=== PATIENT | male | born 1950 | race Caucasian/White ===

== ENCOUNTER 2016-10-14 15:57 | Inpatient (IN) | payer MEDICARE ==
[2016-10-14] MEDS ORDERED: SODIUM CHLORIDE 0.9% 1,000 ML IV STA ×2 (18:51)
[2016-10-14] MEDS ORDERED: SODIUM CHLORIDE 0.9% 1,000 ML IV ONE (18:51)
--- NOTE | 2016-10-14 18:53 | ED ---
General Adult HPI - General Chief complaint: Skin/Abscess/Foreign Body Stated complaint: RT SECOND TOE INFECTION Time Seen by Provider: 10/14/16 18:15 Source: patient, family, RN notes reviewed, old records reviewed Mode of arrival: ambulatory Limitations: no limitations - History of Present Illness Initial comments: This is a 65-year-old male the ER for evaluation of infection. Patient has right great toe infection. Patient's history of diabetes multiple external reinfections fever infections and cellulitis events. Patient coming in the ER for evaluation, patient has been on outpatient antibiotics with no improvement. Patient denies any fevers, no nausea vomiting or diarrhea, no other significant complaints. - Related Data Home Medications Medication Instructions Recorded Confirmed Acitretin [Soriatane] 25 mg PO QAM 01/11/14 07/03/15 Aspirin 325 mg PO DAILY 01/11/14 07/03/15 Pantoprazole Sodium [Protonix] 40 mg PO DAILY 01/11/14 07/03/15 Warfarin [Coumadin] 2.5 mg PO ORTEGA 01/11/14 07/03/15 Atorvastatin Calcium [Lipitor] 40 mg PO DAILY 06/15/15 07/03/15 Clopidogrel [Plavix] 75 mg PO DAILY 06/15/15 07/03/15 DULoxetine HCL [Cymbalta] 60 mg PO QAM 06/15/15 07/03/15 Enalapril Maleate [Vasotec] 20 mg PO BID 06/15/15 07/03/15 Metoprolol Tartrate [Lopressor] 100 mg PO BID 06/15/15 07/03/15 Warfarin [Coumadin] 5 mg PO [id number] 06/15/15 07/03/15 amLODIPine [Norvasc] 10 mg PO QAM 06/15/15 07/03/15 metFORMIN HCL [Glucophage] 1,000 mg PO BID 06/15/15 07/03/15 Apremilast [Otezla] 30 mg PO DAILY 07/01/15 07/03/15 Aspirin 81 mg PO DAILY 07/01/15 07/03/15 Enoxaparin [Lovenox] 80 mg SQ Q12H 07/01/15 07/03/15 cloNIDine HCL [cloNIDine HCL] 0.3 mg PO TID 07/01/15 07/03/15 Previous Rx's Medication Instructions Recorded Insulin NPH/Reg Insulin 70/30 50 unit SQ AC-BID #1 vial 01/21/14 [humuLIN 70/30 VIAL] Diazepam [Valium] 5 mg PO TID PRN #15 tab 06/15/15 HYDROcodone/APAP 5-325MG [[place] 1 tab PO Q6HR PRN #15 tab 06/15/15 5-325] Allergies Allergy/AdvReac Type Severity Reaction Status Date / Time vancomycin Allergy Severe Red Man Verified 10/14/16 18:51 Syndrome hydromorphone HCl Allergy Anaphylaxis Verified 10/14/16 18:51 [From Dilaudid] Review of Systems ROS Statement: Those systems with pertinent positive or pertinent negative responses have been documented in the HPI. ROS Other: All systems not noted in ROS Statement are negative. Past Medical History Past Medical History: Diabetes Mellitus, Hyperlipidemia, Hypertension Additional Past Medical History / Comment(s): PSCORISIS, NEUROPATHY, BACK PAIN History of Any Multi-Drug Resistant Organisms: MRSA Date of last positivie culture/infection: 08/05/2009 MDRO Source:: Unknown Past Surgical History: Heart Catheterization With Stent Additional Past Surgical History / Comment(s): HEART VALVE REPLACEMENT, bilateral lower extremtiies Past Anesthesia/Blood Transfusion Reactions: No Reported Reaction Date of Last Stent Placement:: 02/2013 Past Psychological History: Depression Smoking Status: Former smoker Past Alcohol Use History: Occasional Past Drug Use History: None Reported - Past Family History Mother Family Medical History: Cancer Additional Family Medical History / Comment(s): colon Ca, cervical Ca Father Family Medical History: Coronary Artery Disease (CAD), Diabetes Mellitus, Hypertension Additional Family Medical History / Comment(s): psoriasis,CABG General Exam Limitations: no limitations General appearance: alert, in no apparent distress Head exam: Present: atraumatic, normocephalic, normal inspection Eye exam: Present: normal appearance, PERRL, EOMI. Absent: scleral icterus, conjunctival injection, periorbital swelling ENT exam: Present: normal exam, mucous membranes moist Neck exam: Present: normal inspection. Absent: tenderness, meningismus, lymphadenopathy Respiratory exam: Present: normal lung sounds bilaterally. Absent: respiratory distress, wheezes, rales, rhonchi, stridor Cardiovascular Exam: Present: regular rate, normal rhythm, normal heart sounds. Absent: systolic murmur, diastolic murmur, rubs, gallop, clicks GI/Abdominal exam: Present: soft, normal bowel sounds. Absent: distended, tenderness, guarding, rebound, rigid Extremities exam: Present: normal inspection, full ROM, normal capillary refill , other (Right great toe infection second toe infection). Absent: tenderness, pedal edema, joint swelling, calf tenderness Back exam: Present: normal inspection Neurological exam: Present: alert, oriented X3, CN II-XII intact Psychiatric exam: Present: normal affect, normal mood Skin exam: Present: warm, dry, intact, normal color. Absent: rash Course Vital Signs 10/14/16 16:19 Temperature 98.2 F Pulse Rate 57 L Respiratory 18 Rate Blood Pressure 140/65 O2 Sat by Pulse 98 Oximetry - Reevaluation(s) Reevaluation #1: 10/14/16 18:54 Not right now patient's medical records thoroughly reviewed Medical Decision Making - Medical Decision Making 62 female ER for evaluation of recurrent toe cellulitis and infection, patient with history of diabetes, patient has been outpatient antibiotic treatment and his symptoms are not improving. Patient has history of multiple admissions for similar issue Disposition Clinical Impression: Cellulitis of right toe, Fever, Leukocytosis, Diabetes Disposition: ADMITTED IP TO THIS HOSP Condition: Fair Referrals: Betzy Ibrahim III, MD [Primary Care Provider] - 1-2 days
[2016-10-14 19:39] LABS: Basophils # (A) 0.1 k/uL (0-0.2); Basophils % (A) 1 %; CH 32.8; CHCM 35.2; Eosinophils # (A) 0.5 k/uL (0-0.7); Eosinophils % (A) 5 %; HCT 42.1 % (39.0-53.0); HDW 2.88; HGB 14.6 gm/dL (13.0-17.5); Luc # (Auto) 0.39; Luc % (Auto) 4; Lymphocytes # (A) 1.7 k/uL (1.0-4.8); Lymphocytes % (A) 18 %; MCH 32.4 pg (25.0-35.0); MCHC 34.7 g/dL (31.0-37.0); MCV 93.5 fL (80.0-100.0); Mean Platelet Volume 7.4; Monocytes # (A) 0.7 k/uL (0-1.0); Monocytes % (A) 8 %; Neutrophils # (A) 6.4 k/uL (1.3-7.7); Neutrophils % (A) 65 %; RDW 13.7 % (11.5-15.5); WBC 9.8 k/uL (3.8-10.6); WBC (Perox) 10.15
[2016-10-14 19:43] LABS: Appearance,Urine Clear (Clear); Bilirubin,Urine Negative (Negative); Glucose,Urine (UA) Trace (Negative); Ketones,Urine Negative (Negative); Leukocyte Esterase,Urine Negative (Negative); Nitrite,Urine Negative (Negative); Protein,Urine Trace (Negative); Specific Gravity,Urine 1.015 (1.001-1.035); UA Billing (MACRO vs. MICRO) CHEM; Urobilinogen,Urine <2.0 mg/dL (<2.0)
[2016-10-14 19:49] LABS: INR 3.9 (<1.1); Partial Thromboplastin Time 36.6 sec (22.0-30.0); Prothrombin Time 38.2 sec (9.0-12.0)
[2016-10-14 19:51] LABS: ALT 35 U/L (21-72); AST 23 U/L (17-59); Alkaline Phosphatase 55 U/L (38-126); Anion Gap 12 mmol/L; Blood Urea Nitrogen 11 mg/dL (9-20); Carbon Dioxide 23 mmol/L (22-30); Chloride 105 mmol/L (98-107); Glucose 115 mg/dL (74-99); Magnesium 1.8 mg/dL (1.6-2.3); Non-African American GFR(MDRD) >60 (>60 ml/min/1.73 sqM); Phosphorous 3.4 mg/dL (2.5-4.5); Sodium 140 mmol/L (137-145); Total Bilirubin 0.6 mg/dL (0.2-1.3); Total Protein 7.3 g/dL (6.3-8.2)
[2016-10-14 20:03] LABS: Creatine Kinase 107 U/L (55-170)
[2016-10-14 20:15] LABS: Troponin I <0.012 ng/mL (0.000-0.034)
[2016-10-14 20:27] LABS: Creatine Kinase MB 2.8 ng/mL (0.0-2.4)
[2016-10-14 21:13] LABS: Glucose,Whole Blood 74 mg/dL (75-99)
[2016-10-14] MEDS ORDERED: HYDROcodone/APAP 5-325MG 1 EACH TAB PO PRN (22:26)
[2016-10-14] MEDS ORDERED: LORATADINE 10 MG TAB PO PRN (22:26)
[2016-10-14] MEDS ORDERED: MELATONIN 5 MG TABLET PO SCH (22:30)
[2016-10-14] MEDS ORDERED: WARFARIN 5 MG TAB PO SCH (23:15)
[2016-10-15] MEDS: cloNIDine HCL 0.1 MG TAB PO SCH ×2 (00:10→08:12)
[2016-10-15] MEDS: METOPROLOL TARTRATE 50 MG TAB PO SCH ×2 (00:10→11:32)
[2016-10-15] MEDS: metFORMIN 500 MG TAB PO SCH ×2 (00:14→08:12)
[2016-10-15 00:15] LABS: Glucose,Whole Blood 157 mg/dL (75-99)
[2016-10-15 02:13] VITALS: RESP 16
[2016-10-15 07:24] LABS: Glucose,Whole Blood 141 mg/dL (75-99)
[2016-10-15 08:11] LABS: INR 3.7 (<1.1); Prothrombin Time 36.6 sec (9.0-12.0)
[2016-10-15] MEDS: INSULIN LISPRO (humaLOG) 300 UNIT/3 ML VIAL SQ SCH ×2 (08:13→13:06)
[2016-10-15 08:14] LABS: Basophils # (A) 0.1 k/uL (0-0.2); Basophils % (A) 1 %; CH 32.7; CHCM 35.1; Eosinophils # (A) 0.4 k/uL (0-0.7); Eosinophils % (A) 5 %; HCT 39.7 % (39.0-53.0); HDW 2.95; HGB 13.7 gm/dL (13.0-17.5); Luc # (Auto) 0.21; Luc % (Auto) 3; Lymphocytes # (A) 1.4 k/uL (1.0-4.8); Lymphocytes % (A) 18 %; MCH 32.2 pg (25.0-35.0); MCHC 34.4 g/dL (31.0-37.0); MCV 93.7 fL (80.0-100.0); Monocytes # (A) 0.7 k/uL (0-1.0); Monocytes % (A) 9 %; Neutrophils % (A) 64 %; RBC 4.24 m/uL (4.30-5.90); RDW 13.6 % (11.5-15.5); WBC 7.8 k/uL (3.8-10.6)
[2016-10-15 08:22] LABS: ALT 31 U/L (21-72); AST 20 U/L (17-59); Alkaline Phosphatase 47 U/L (38-126); Anion Gap 12 mmol/L; Blood Urea Nitrogen 9 mg/dL (9-20); Calcium 9.5 mg/dL (8.4-10.2); Carbon Dioxide 22 mmol/L (22-30); Chloride 108 mmol/L (98-107); Glucose 121 mg/dL (74-99); Non-African American GFR(MDRD) >60 (>60 ml/min/1.73 sqM); Potassium 4.7 mmol/L (3.5-5.1); Sodium 142 mmol/L (137-145); Total Bilirubin 0.7 mg/dL (0.2-1.3); Total Protein 6.4 g/dL (6.3-8.2)
[2016-10-15] MEDS ORDERED: LISINOPRIL 20 MG TAB PO SCH (09:00)
[2016-10-15] MEDS ORDERED: ENOXAPARIN 40 MG/0.4 ML SYRINGE SQ SCH (09:00)
[2016-10-15] MEDS ORDERED: APREMILAST 30 MG PO SCH (09:00)
[2016-10-15 11:32] LABS: Glucose,Whole Blood 156 mg/dL (75-99)
[2016-10-15 14:53] LABS: Hemoglobin A1C 6.9 % (4.2-6.1)
[2016-10-15 15:20] VITALS: BP 152/76; PULSE 54; TEMP 97.1
--- NOTE | 2016-10-15 21:09 | HP ---
This dictation is both H&P and discharge summary. DATE OF ADMISSION: 10/15/2016 A 65-year-old admitted for cellulitis of the right foot. The patient has right leg cellulitis, extending up to mid-foot area dorsally as well as on the plantar surface, with mild localized temperature without any pain. Patient was diagnosed with cellulitis. Patient has had MRSA in the past. Patient received vancomycin. I believe patient can be treated as an outpatient. Patient will be discharged, because of his MRSA history, although there is no lymphadenopathy in the lower limb, patient will be discharged on Bactrim. The other issue is his INR is supratherapeutic at 3.7, check Coumadin levels. Since he is being discharged on antibiotics, his INR is expected to go up because of which I have asked him to cut down his Coumadin. Check INR level daily until comes down below 3. Once it comes down below 3, the patient can start taking 2.5 mg of Coumadin. REVIEW OF SYSTEMS: CONSTITUTIONAL: No fever, no malaise, no fatigue. HEENT: No recent visual problems or hearing problems. Denied any sore throat. CARDIOVASCULAR: No chest pain, orthopnea, PND, no palpitations, no syncope. PULMONARY: No shortness of breath, no cough, no hemoptysis. GASTROINTESTINAL: No diarrhea, no nausea, no vomiting, no abdominal pain. Normoactive bowel sounds. NEUROLOGICAL: No headaches, no weakness, no numbness. HEMATOLOGICAL: Denies any bleeding or petechiae. GENITOURINARY: Denies any burning micturition, frequency, or urgency. MUSCULOSKELETAL/RHEUMATOLOGICAL: Denies any joint pain, swelling, or any muscle pain. ENDOCRINE: Denies any polyuria or polydipsia. DERMATOLOGIC: As in HPI. The rest of the 14 point review of systems is negative. MEDICATIONS: 1. Aspirin. 2. Pantoprazole. 3. Warfarin. 4. Atorvastatin. 5. Plavix. 6. Digoxin. 7. Metoprolol. 8. Coumadin. 9. Amlodipine. 10. Metformin. 11. Otezla. 12. Enoxaparin. 13. Clonidine. 14. 70/30, 50 units with meals b.i.d. 15. Diazepam. 16. Hydrocodone. 17. Acetaminophen. ALLERGIES: Allergic to VANCOMYCIN, HYDROMORPHONE. PAST MEDICAL HISTORY: Diabetes mellitus, hyperlipidemia, hypertension, chronic bilateral chronic venostasis, psoriasis, dryness of bilateral lower limbs. PAST SURGICAL HISTORY: Cardiac catheterization, stent placement, valve placement. SOCIAL HISTORY: Former smoker. Denied any alcohol abuse or any drug abuse. FAMILY HISTORY: Mother had colon cancer and cervical cancer. Father had coronary disease, diabetes mellitus, and hypertension. PHYSICAL EXAMINATION: VITAL SIGNS: Temperature 98.2, pulse of 57, respiratory rate of 18, blood pressure is 140/65. PHYSICAL EXAMINATION: GENERAL: The patient is alert and oriented x3, not in any acute distress. Well developed, well nourished. HEENT: Pupils are round and equally reacting to light. EOMI. No scleral icterus. No conjunctival pallor. Normocephalic, atraumatic. No pharyngeal erythema. No thyromegaly. CARDIOVASCULAR: S1 and S2 present. No murmurs, rubs, or gallops. PULMONARY: Chest is clear to auscultation, no wheezing or crackles. ABDOMEN: Soft, nontender, nondistended, normoactive bowel sounds. No palpable organomegaly. MUSCULOSKELETAL: No joint swelling or deformity. EXTREMITIES: No cyanosis, clubbing, or pedal edema. NEUROLOGICAL: Gross neurological examination did not reveal any focal deficits. SKIN: Bilateral lower extremity dry skin with scaly lesions and lower limb cellulitis as well. ASSESSMENT AND PLAN: 1. Right lower limb cellulitis. The patient will be discharged on Bactrim as mentioned above. 2. Hypertension. 3. Hyperlipidemia. 4. Diabetes mellitus type 2. 5. Peripheral neuropathy. 6. History of osteomyelitis in the past. 7. Coronary artery disease. Patient is on Coumadin. I tried to go back in the medical records, not sure why but patient is supratherapeutic. Coumadin management as mentioned above. DISCHARGE INSTRUCTIONS: 1. Patient will follow with his primary care physician, Dr. Ibrahim, in 3 to 7 days. 2. Activity as tolerated. 3. Cardiac and diabetic 1800 calorie diet.
== END 2016-10-15 15:54 | disposition home or self-care (01) | DRG 603 ==
LOC: EC 15:57 → 4MS4W 18:53
PROVIDERS: ADMIT Hospitalist; ATTEND Hospitalist
DX: L03.115 Cellulitis of right lower limb (principal); E11.42 Type 2 diabetes mellitus with diabetic polyneuropathy; I10 Essential (primary) hypertension; E78.5 Hyperlipidemia, unspecified; F32.9 Major depressive disorder, single episode, unspecified; L40.9 Psoriasis, unspecified; I25.10 Atherosclerotic heart disease of native coronary artery without angina pectoris; Z86.14 Personal history of Methicillin resistant Staphylococcus aureus infection; Z87.891 Personal history of nicotine dependence; Z95.2 Presence of prosthetic heart valve; Z16.24 Resistance to multiple antibiotics; Z79.84 Long term (current) use of oral hypoglycemic drugs; Z79.02 Long term (current) use of antithrombotics/antiplatelets; Z79.82 Long term (current) use of aspirin; Z79.01 Long term (current) use of anticoagulants; Z79.899 Other long term (current) drug therapy; Z79.4 Long term (current) use of insulin; Z83.3 Family history of diabetes mellitus
CPT/HCPCS: 80053; 81003; 82550; 82553; 83036; 83735; 84100; 84484; 85025; 85610; 85730; 87040; 87086; 93005; 96361; 96365; 99284; 99285